=== PATIENT | male | born 1975 | race American Indian/Alaskan Native ===

== ENCOUNTER 2024-12-11 13:21 | Emergency (ER) | payer OTHER ==
[2024-12-11] MEDS ORDERED: Iopamidol 755 Mg/ML 100 ML Bottle IVPUSH ONE (14:13)
[2024-12-11] MEDS ORDERED: Sodium Chloride 0.9% 100 ML IV SCH (14:15)
[2024-12-11 14:16] LABS: BASOPHILS PERCENT AUTO 0.3 % (0.0-1.0); EOSINOPHILS ABSOLUTE AUTO 0.1 K/mm3 (0.0-0.4); HEMATOCRIT 44.7 % (42.0-52.0); HEMOGLOBIN 14.5 gm/dl (14.0-18.0); IMMATURE GRAN ABSOLUTE AUTO 0.03 K/mm3 (0.00-0.05); IMMATURE GRAN PERCENT AUTO 0.3 % (0.0-0.4); LYMPHOCYTES ABSOLUTE AUTO 1.5 K/mm3 (1.0-4.8); LYMPHOCYTES PERCENT AUTO 12.9 % (24.0-44.0); MEAN CORPUSCULAR HEMOGLOBIN 28.2 pg (28.0-32.0); MEAN CORPUSCULAR HGB CONC 32.4 g/dl (32.0-36.0); MEAN CORPUSCULAR VOLUME 86.8 fl (83.0-99.0); MEAN PLATELET VOLUME 9.4 fl (9.4-12.4); MONOCYTES ABSOLUTE AUTO 0.4 K/mm3 (0.0-0.8); MONOCYTES PERCENT AUTO 3.9 % (0.0-8.0); NEUTROPHILS ABSOLUTE AUTO 9.2 K/mm3 (1.8-7.7); NEUTROPHILS PERCENT AUTO 81.6 % (41.0-71.0); PLATELET COUNT,PLT 306 K/mm3 (150-400); RED BLOOD CELL COUNT 5.15 M/mm3 (4.52-5.90); WHITE BLOOD CELL COUNT,WBC 11.27 K/mm3 (3.9-11.3)
[2024-12-11] MEDS: Sodium Chloride 0.9% 100 ML IV SCH (14:22)
[2024-12-11] MEDS: Sodium Chloride 0.9% 10 ML Syringe FLUSH PRN ×2 (14:22→16:50)
[2024-12-11] MEDS: Iopamidol 755 Mg/ML 100 ML Bottle IVPUSH ONE (14:22)
[2024-12-11 14:42] LABS: INR 0.97; PROTHROMBIN TIME 10.3 SECONDS (9.7-12.0)
[2024-12-11 14:44] LABS: PTT,PARTIAL THROMBOPLSTIN TIME 31.3 SECONDS (21.7-31.4)
[2024-12-11 14:46] LABS: A/G RATIO 0.9 (1-2); ALBUMIN 3.7 g/dl (3.4-5.0); BILIRUBIN TOTAL 0.5 mg/dL (0.2-1.0); EST CRCL DRUG DOSING (CG) 100.23 mL/min; PROTEIN TOTAL,TP 7.8 g/dl (6.4-8.2)
[2024-12-11 14:58] LABS: CALCIUM 8.8 mg/dL (8.5-10.1)
[2024-12-11] MEDS: Metoclopramide 10 MG/2 ML SDV IVPUSH ONE (16:43)
[2024-12-11] MEDS: Ketorolac 30 MG/ML SDV IVPUSH ONE (16:43)
[2024-12-11] MEDS: diphenhydrAMINE 50 MG/ML SDV IVPUSH ONE (16:43)
== END 2024-12-11 17:44 | disposition home or self-care (01) ==
LOC: JD.ED 13:21
DX: G43.109 Migraine with aura, not intractable, without status migrainosus (principal)
CPT/HCPCS: 36415; 70450; 70450-26; 70496; 70496-26; 70498; 70498-26; 80053; 82947; 84484; 85025; 85610; 85730; 93005; 96374; 96375; 99284-25; J1200; J1885; J2765; Q9967